=== PATIENT | male | born 1995 | race Caucasian/White ===

== ENCOUNTER 2020-01-06 20:08 | Emergency (ER) | payer SELFPAY ==
[2020-01-06 20:10] VITALS: BP 106/86; PULSE 108; RESP 16; TEMP 37.2; O2SAT 98; BMI 29.0
[2020-01-06 20:30] VITALS: BP 112/84; PULSE 110; RESP 17; O2SAT 98
--- NOTE | 2020-01-06 20:41 | CT_ITS ---
PROCEDURE: CT HEAD/BRAIN WO CON CLINICAL INDICATION: Head injury Head injury with headache/pain, contusion, abrasion or hematoma COMPARISON: No exams were available for comparison TECHNIQUE: Axial images obtained. All CT scans at the facility use one or more dose reduction, viz: automated exposure control, ma/kV adjustment per patient size (including targeted exams where dose is matched to indication, i.e. head), or iterative reconstruction technique. FINDINGS: No midline shift, mass effect, intracranial hemorrhage, hydrocephalus, or extra-axial fluid collection is evident. The calvarium has an unremarkable appearance. No mastoid effusion. No sinus air-fluid level. IMPRESSION: No acute intracranial finding Dictated by: Juan R Schmid MD 01/07/2020 06:09 Juan R Schmid MD in [place] 01/07/2020 06:09
--- NOTE | 2020-01-06 20:41 | CT_ITS ---
PROCEDURE: CT CERVICAL SPINE WO CON CLINICAL INDICATION: Head injury Neck injury with pain, contusion/abrasion or hematoma, cervical sprain/strain the COMPARISON: No exams were available for comparison TECHNIQUE: Axial images obtained with sagittal and coronal reformats. All CT scans at the facility use one or more dose reduction, viz: automated exposure control, ma/kV adjustment per patient size (including targeted exams where dose is matched to indication, i.e. head), or iterative reconstruction technique. Axial spiral CT scanning performed of the cervical spine beginning at the base of the skull and continuing to the upper T-spine. 3-D multiplanar reconstruction with 3-D manipulation of volumetric data set in image rendering was completed by the radiologist and/or technologist with the supervision of the radiologist on independent workstation. FINDINGS: No fracture nor subluxation is evident. Normal prevertebral soft tissues. Facets, neural foramen and vertebral bodies intact and unremarkable. Normal C1/C2 relationships. Apices of lungs are clear with no acute findings. Scattered small nodes are present in the neck. These measure to 2 x 1 cm level 3 on the left. IMPRESSION: No acute fracture. Mild cervical adenopathy. Dictated by: Juan R Schmid MD 01/07/2020 06:14 Juan R Schmid MD in [facility] 01/07/2020 06:14
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
[2020-01-06 21:29] VITALS: BP 116/72; PULSE 96; RESP 16; TEMP 37.2; O2SAT 99
== END 2020-01-06 21:32 | disposition home or self-care (01) ==
PROVIDERS: Emergency Provider Emergency Medicine; PCP Nurse Practitioner Family
DX: S00.93XA Contusion of unspecified part of head, initial encounter (principal); W22.03XA Walked into furniture, initial encounter; Y92.019 Unspecified place in single-family (private) house as the place of occurrence of the external cause; F17.290 Nicotine dependence, other tobacco product, uncomplicated
CPT/HCPCS: 70450; 72125; 99283

== ENCOUNTER 2020-09-20 19:07 | Emergency (ER) | payer SELFPAY ==
[2020-09-20 19:25] VITALS: BP 133/83; PULSE 97; RESP 18; TEMP 36.8; O2SAT 97; BMI 30.5
[2020-09-20 19:53] VITALS: PULSE 97; RESP 18; TEMP 36.8; O2SAT 97; BMI 36.6
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
[2020-09-20 21:03] VITALS: BP 0/0; PULSE 0; RESP 0; TEMP -17.7; TEMP 0
== END 2020-09-20 21:03 | disposition home or self-care (01) ==
PROVIDERS: Emergency Provider Nurse Practitioner
DX: T25.211A Burn of second degree of right ankle, initial encounter (principal); T31.0 Burns involving less than 10% of body surface; X03.0XXA Exposure to flames in controlled fire, not in building or structure, initial encounter; Y92.89 Other specified places as the place of occurrence of the external cause; Z23 Encounter for immunization; F17.290 Nicotine dependence, other tobacco product, uncomplicated
CPT/HCPCS: 16020; 90715; 99202; G0463

== ENCOUNTER 2021-04-17 12:22 | Emergency (ER) | payer OTHER, SELFPAY ==
[2021-04-17 12:23] VITALS: BP 148/84; PULSE 83; RESP 16; TEMP 36.8; O2SAT 99; BMI 32.1
--- NOTE | 2021-04-17 14:04 | HMH.EDUTC ---
[facility] [place] Clinical Impression: Viral syndrome Back pain Qualifiers: Back pain location: low back pain Chronicity: acute Back pain laterality: midline Sciatica presence: without sciatica Qualified Code(s): M54.50 - Low back pain, unspecified Disposition: Home, Self-Care Condition on Discharge: Good Instructions: DI for Low Back Pain, DI for Viral Syndrome Additional Instructions: Go home and rest. It would be best if you rested tomorrow too. No heavy lifting. No twisting. Drink plenty of fluids. Take tylenol or ibuprofen for pain or fever. Take the medications as directed. Follow up with your regular doctor. GO TO THE ER FOR ANY WORSENING SYMPTOMS Prescriptions: Brompheniramine/Pseudoephed/Dm [Bromfed Dm Cough Syrup] 5 ml PO Q6HP PRN #240 ml PRN Reason: Cough Transmission Status: Received by [facility] Ibuprofen [Ibuprofen 800mg Tablet] 800 mg PO Q8HP PRN #30 tab PRN Reason: Moderate Pain Transmission Status: Received by [facility] methylPREDNISolone [Medrol] 4 mg PO DIRECTED 6 Days #21 packet Transmission Status: Received by [id number] Referrals: Provider,Referral, [Primary Care Provider] - Forms: Work/School Release Time of Disposition: 14:32 Medical Decision Making - Medical Records Medical records reviewed: No: I reviewed the patient's medical records. - Franklin Inquiry Pt receiving controlled substance: No Vital Signs: 04/17/21 12:23 04/17/21 14:35 Temperature 98.3 F 98.3 F Temperature Source Oral Oral Pulse Rate 80 Pulse Rate [Right] 83 Respiratory Rate 16 16 Blood Pressure 148/80 H Blood Pressure [Right Arm] 148/84 H Blood Pressure Mean [Right Arm] 105 Blood Pressure Source Automatic Cuff Blood Pressure Source [Right Arm] Automatic Cuff Blood Pressure Position Sitting Blood Pressure Position [Right Arm] Sitting 02 Sat by Pulse Oximetry 99 Oxygen Delivery Method Room Air Room Air - Lab Data Lab Results 04/17/21 14:13: Strep Scn Rapid Clinic Negative [facility] [place] - General Stated complaint: back pain Time Seen by Provider: 04/17/21 14:04 - History of Present Illness Provider Complaint: He states that he has felt bad since yesterday. He has had back pain, body aches and he has felt bad. He denies any chest congestion or significant cough. - Related Data Previous Rx's Medication Instructions Recorded Amoxicillin/Potassium Clav 1 tab PO Q12H 10 Days #20 tab 09/20/20 [Augmentin 875-125 Tablet] Brompheniramine/Pseudoephed/Dm 5 ml PO Q6HP PRN #240 ml 04/17/21 [Bromfed Dm Cough Syrup] Ibuprofen [Ibuprofen 800mg 800 mg PO Q8HP PRN #30 tab 04/17/21 Tablet] methylPREDNISolone [Medrol] 4 mg PO DIRECTED 6 Days #21 04/17/21 packet Allergies Allergy/AdvReac Type Severity Reaction Status Date / Time No Known Allergies Allergy Verified 01/06/20 20:41 [facility] History - Hepatitis A Screen Attestation statement:: This patient has been screened for Hepatitis A risk factors. I have reviewed the patient's past medical history: Yes 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: Denies:: Cancer, Diabetes Mellitus Type 1, Diabetes Mellitus Type 2, MRSA Amputation: No Fractures: No - Social History Smoking Status: Current every day smoker Tobacco Type: e-cigarettes # Packs/Day (cigarettes): 1 Alcohol Intake: current Alcohol Intake Frequency:: holidays/special occasions only Occupational Status: employed Housing: house ROS Obtained: Yes All systems reviewed & no additional complaints - Constitutional Constitutional: Denies chills, Denies fever(s) - Genitourinary Male Genitourinary: Denies difficulty urinating, Denies hematuria, Denies urinary frequency, Denies urinary hesitancy - Musculoskeletal Musculoskeletal: Reports as per HPI - Integumentary/Breasts Skin/Breast: Denies rash - Neurologic Neurologic: Denies tingling/numbness/burning sensations Physical Exam - General General a
[2021-04-17 14:16] LABS: UTC Strep Screen (Rapid) Negative (Negative)
[2021-04-17 14:35] VITALS: BP 148/80; PULSE 80; RESP 16; TEMP 36.8; O2SAT 98
== END 2021-04-17 14:38 | disposition home or self-care (01) ==
PROVIDERS: Emergency Provider Nurse Practitioner Family
DX: B34.9 Viral infection, unspecified (principal); M54.50 Low back pain, unspecified
CPT/HCPCS: 87880; 99212; G0463

== ENCOUNTER 2021-10-30 08:15 | Emergency (ER) | payer OTHER, SELFPAY ==
[2021-10-30] VITALS (10 sets, daily range): BP systolic 106–133; BP diastolic 50–85; PULSE 61–92; RESP 15–18; TEMP 36.8–36.9; O2SAT 98–99; BMI 33.1
--- NOTE | 2021-10-30 08:15 | ECG_ITS ---
APPROVED REPORT Exam: Resting ECG HR:84 bpm ECG Measurements Heart Rate 84 AXES MO 161 P 11 QRSd 116 QRS 54 QT 374 T 16 QTc 414 Conclusion SINUS RHYTHM MODERATE INTRAVENTRICULAR CONDUCTION DELAY [110+ ms QRS DURATION] BORDERLINE ECG UNCONFIRMED REPORT Electronically signed by : Fam Martinez MD 10/30/2021 21:08:28
--- NOTE | 2021-10-30 08:22 | PC.NURSE ---
Medic @ BS attepmting IV Access
--- NOTE | 2021-10-30 08:28 | XR_ITS ---
FINAL REPORT TECHNIQUE: Chest PA & Lateral CLINICAL HISTORY: CP FINDINGS: 2 views of the chest were performed. The heart size is normal. The mediastinum is within normal limits. There is no acute cardiopulmonary process. There are no pleural effusions. There is no pneumothorax. The bony thorax appears intact. IMPRESSION: No acute cardiopulmonary process. Reviewed, Interpreted and Dictated by Ignacio Davis MD Transcribed by Chris Pinto Authenticated and [facility]
[2021-10-30 08:37] LABS: Basophils # 0.1 K/mm3 (0-0.2); Basophils % 1.5 % (0.1-2.0); Eosinophils # 0.3 K/mm3 (0.0-0.4); Eosinophils % 3.4 % (0.1-12.0); Hematocrit 46.2 % (42.0-52.0); Hemoglobin 15.2 g/dL (14.1-18.0); Lymphocytes # 3.3 K/mm3 (0.7-4.5); Lymphocytes % 37.4 % (10-50); Mean Corpuscular HGB Conc 32.9 g/dL (31.8-35.4); Mean Corpuscular Hemoglobin 31.5 pg (27.0-31.2); Mean Corpuscular Volume 95.7 fl (80-94); Mean Platelet Volume 7.6 fl (7.4-10.4); Monocytes # 0.7 K/mm3 (0.1-1.0); Monocytes % 8.5 % (1.7-9.3); Neutrophils # 4.3 K/mm3 (1.8-7.8); Neutrophils % 49.2 % (37.0-80.0); Platelet Count 405 K/mm3 (142-424); Red Blood Count 4.83 M/mm3 (4.60-6.20); Red Cell Distribution Width 12.8 % (11.5-17.5); White Blood Count 8.8 K/mm3 (4.8-10.8)
[2021-10-30 08:40] LABS: Chloride 105 mmol/L (98-107)
[2021-10-30 08:41] LABS: Potassium 3.9 mmoL/L (3.5-5.1); Sodium 142 mmol/L (136-145)
[2021-10-30 08:44] LABS: Anion Gap 13.9 mEq/L (5-15); Blood Urea Nitrogen 14 mg/dl (9-20); Calcium 8.8 mg/dl (8.4-10.2); Carbon Dioxide 27 mmol/L (22.0-30.0); Creatinine Clearance Estimated 242 mL/min (50-200); Estimated Glomerular Filt Rate 119 ml/min (>60); GFR (African American) 144 ML/MIN (>60); Glucose 99 mg/dl (74-100)
[2021-10-30 08:56] LABS: Troponin I < 0.01 ng/ml (0.00-0.034)
--- NOTE | 2021-10-30 09:02 | PC.NURSE ---
PT to rad
--- NOTE | 2021-10-30 09:05 | PC.NURSE ---
Pt back from RAD
--- NOTE | 2021-10-30 09:23 | HMH.EDGENADL ---
Discharge Plan Disposition Patient Disposition: Home, Self-Care Condition: Good Chief Complaint: Chest Pain Prescriptions Prescriptions: No Action amoxicillin-pot clavulanate 1 EACH tablet 1 tab PO Q12H 10 Days Qty: 20 0RF ibuprofen 800 MG tablet 800 mg PO Q8HP PRN (Reason: Moderate Pain) Qty: 30 0RF methylprednisolone 4 MG tablets,dose pack 4 mg PO DIRECTED 6 Days Qty: 21 0RF gxfheerxyzdwmkk-rcjsxajyw-BD 118 ML syrup 5 ml PO Q6HP PRN (Reason: Cough) Qty: 240 0RF Referrals Follow up/Referrals: Provider,Referral, MD [Primary Care Provider] - See instructions Activity Restrictions/Add. Instructions Additional Instructions/Restrictions: Additional instructions for CHEST PAIN: See your physician as soon as possible for further evaluation. Return immediately if worsening chest pain, vomiting, shortness of breath, fever, coughing of blood. You are being provided with a list of physicians available for follow-up of your condition. Please call a physician on this list to arrange a follow-up appointment as soon as possible. Clinical Impressions Clinical Impression: Atypical chest pain Discharge ED Provider: Quintin Davis General Adult HPI General Chief complaint: Chest Pain Stated complaint: Chest Pain Time Seen by Provider: 10/30/21 09:20 Mode of Arrival: Ambulatory Source of Information: Patient Limitations: No Limitations Description of Symptoms (Recalled from ER Triage Doc. by RN): Pt c/o midsternal CP that began at approx 0600 when he woke up this AM. Denies cough, SOA, N/V. States that sometimes breathing increases the pain. History of Present Illness HPI narrative: States he woke up at 6 AM with pain in his right anterior chest that feels like needles. Pain worsens with deep breath. Denies being short of breath. No leg pain or swelling. He has had some coughing since awakening this morning but no hemoptysis or sputum production. No fever. The pain is still present. No treatment prior to arrival. States that he had to be on a heart monitor 4 weeks after he was born, otherwise no heart problems since then. No known lung conditions. He is a former smoker. No recent surgery, hospitalizations, or travel. No recent COVID infection. Related Data Previous Rx's Medication Instructions Recorded amoxicillin 875 mg-potassium 1 tab PO Q12H 10 days #20 tabs 09/20/20 clavulanate 125 mg tablet btgiymwzdoswpxo-ampvwqiroyazraz-IN 5 ml PO Q6HP PRN Cough #240 mL 04/17/21 2 mg-30 mg-10 mg/5 mL oral syrup ibuprofen 800 mg tablet 800 mg PO Q8HP PRN Moderate Pain 04/17/21 #30 tabs methylprednisolone 4 mg tablets in 4 mg PO DIRECTED 6 days #21 04/17/21 a dose pack packets Allergies Allergy/AdvReac Type Severity Reaction Status Date / Time No Known Allergies Allergy Verified 01/06/20 20:41 PFSH PFS Social History Smoking Status: Former smoker alcohol intake: current current occupational status: employed Travel in the last 8 weeks: None housing: house ROS Obtained: Yes Systems reviewed as appropriate & no additional complaints except as documented Constitutional Constitutional: Denies fever(s) and Denies weakness Cardiovascular Cardiovascular: Denies chest pain, Denies diaphoresis and Denies radiating jaw, neck or arm pain Respiratory Respiratory: Denies shortness of breath, Reports cough, Denies hemoptysis, Denies cough with sputum production and Reports pain with breathing Gastrointestinal Gastrointestingal: Denies abdominal pain, constipation, diarrhea or vomiting Genitourinary Male Genitourinary: Denies difficulty urinating and Denies flank pain Musculoskeletal Musculoskeletal: Denies numbness Neurologic Neurologic: Denies numbness and Denies weakness Physical Exam General General appearance: alert and in no apparent distress Head Head exam: atraumatic and normocephalic Eye Eye exam: Present normal appearance and EOMI ENT ENT exam: Present mucous
[2021-10-30 11:20] LABS: D-Dimer 0.41 ug/mL (0.0-0.5)
[2021-10-30 11:44] LABS: Troponin I < 0.01 ng/ml (0.00-0.034)
== END 2021-10-30 12:17 | disposition home or self-care (01) ==
PROVIDERS: Emergency Provider Emergency Medicine
DX: R07.89 Other chest pain
CPT/HCPCS: 71046; 80048; 84484; 85025; 85378; 93005; 99284

== ENCOUNTER → 2022-06-04 13:51 | Outpatient (CLI) | payer OTHER, SELFPAY ==
--- NOTE | 2022-06-04 13:58 | XR_ITS ---
FINAL REPORT CLINICAL HISTORY: low back pain FINDINGS: AP and lateral views were obtained. There is no acute fracture. There is no malalignment. The disc spaces are maintained. IMPRESSION: No acute process. Reviewed, Interpreted and Dictated by Memo Wheeler III, MD Transcribed by Chris Pinto Authenticated and . [facility]
== END ==
PROVIDERS: PCP Family Medicine; Visit Provider Family Medicine
DX: M54.50 Low back pain, unspecified (principal)
CPT/HCPCS: 72100

== ENCOUNTER 2022-06-09 17:48 | Emergency (ER) | payer OTHER, SELFPAY ==
[2022-06-09 17:49] VITALS: BP 146/92; PULSE 85; RESP 18; TEMP 36.8; O2SAT 99; BMI 34.0
--- NOTE | 2022-06-09 17:52 | XR_ITS ---
PROCEDURE INFORMATION: Exam: XR Right Foot Exam date and time: 06/09/2022 5:53 PM Age: 26 years old Clinical indication: Pain; Foot; Right; Additional info: Stubbed great toe TECHNIQUE: Imaging protocol: Radiologic exam of the right foot. Views: 3 or more views. COMPARISON: No relevant prior studies available. FINDINGS: Bones/joints: There is mild hallux valgus. Osseous alignment is otherwise normal. Linear lucency at the distal end of the 1st proximal phalanx is compatible with nondisplaced intra-articular fracture. No other evidence of fracture. No arthritic change. Soft tissues: Normal. IMPRESSION: Nondisplaced intra-articular fracture of the distal end of the 1st proximal phalanx
--- NOTE | 2022-06-09 18:15 | EXP.UTC ---
Discharge Plan Disposition Patient Disposition: Home, Self-Care Condition: Good Prescriptions Prescriptions: No Action tizanidine 4 mg tablet 4 mg PO Q8H PRN (Reason: muscle spasticity) Qty: 60 0RF naproxen [Naprosyn] 500 mg tablet 500 mg PO BID Referrals Follow up/Referrals: Chas Mi DO [Staff Physician] - See instructions (Call office for appointment) Samantha Cunningham DO [Primary Care Provider] - See instructions Activity Restrictions/Add. Instructions Additional Instructions/Restrictions: *weight bearing as tolerated *RICE, Rest the extremity, Ice 15-20 minutes 3-4 times daily, Compress- wear the henrietta wrap as discussed as much as possible to help reduce swelling and pain, Elevate the extremity when at rest *Post op Shoe is for support and help control swelling, use it except in the shower. Be sure that is not to tight but not to loose either *Elevate when resting? *Ibuprofen 600-800mg every 6-8 hours as needed for pain an inflammation. If need something more can take Tylenol in between doses of Ibuprofen to help Follow up with Orthopedics for further evaluation and treatment Clinical Impressions Clinical Impression: Fracture of toe Instructions Patient Instructions: Toe Fracture, DI for Toe Fracture, How To Perform RICE (Rest, Ice, Compress, Elevate) Discharge ED Provider: Rosamaria Escobar [facility] General Stated complaint: AO 06/08 Right foot big toe pain Time Seen by Provider: 06/09/22 18:15 History of Present Illness Provider Complaint: Patient states that he stubbed his right great toe yesterday on the door frame and has been having pain and swelling ever since States that it hurts when he walks and bends his toe States that today bruising was worse today so he came in to get it checked Related Data Home Medications Medication Instructions Recorded Confirmed naproxen 500 mg tablet (Naprosyn) 500 mg PO BID . 06/09/22 06/09/22 Previous Rx's Medication Instructions Recorded tizanidine 4 mg tablet 4 mg PO Q8H PRN muscle spasticity 06/05/22 #60 tabs Allergies Allergy/AdvReac Type Severity Reaction Status Date / Time No Known Allergies Allergy Verified 06/09/22 18:18 [facility] Disclaimer: The information contained in this section may have been updated after the patient was seen, as this information can be updated by other users. 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 (Updated 06/09/22 @ 18:37 by Rosamaria Escobar APRN) ADD (attention deficit disorder) ADHD Surgical History Hx of tonsillectomy Family History Mother Diabetes Hypertension Asthma Sister Thyroid disorder Hypertension Diabetes Social History Smoking Status: Former smoker years smoked: 5 smoking status stop date: 09/24/2021 alcohol intake: current substance use type: denies use current occupational status: employed Travel in the last 8 weeks: None housing: house ROS Obtained: Yes All systems reviewed & no additional complaints except as documented and Yes Systems reviewed as appropriate & no additional complaints except as documented Constitutional Constitutional: Reports system reviewed and no additional complaints, except as documented and Reports as per HPI ENT Ears, Nose, Mouth, and Throat: Reports system reviewed and no additional complaints, except as documented and Reports as per HPI Cardiovascular Cardiovascular: Reports system reviewed and no additional complaints, except as documented and Reports as per HPI Respiratory Respiratory: Reports system reviewed and no additional complaints, except as documented and Reports as per HPI Musculoskeletal Musculoskeletal: Reports system reviewed and no additional complaints, except as documented and Reports as per HPI Comments: bruising and swelling to right great toe since yesterday Physical
[2022-06-09 18:44] VITALS: BP 146/92; PULSE 85; RESP 18; TEMP 36.8; O2SAT 99
== END 2022-06-09 18:44 | disposition home or self-care (01) ==
PROVIDERS: Emergency Provider Nurse Practitioner; PCP Family Medicine
DX: S92.414A Nondisplaced fracture of proximal phalanx of right great toe, initial encounter for closed fracture (principal); W22.8XXA Striking against or struck by other objects, initial encounter; Z87.891 Personal history of nicotine dependence
CPT/HCPCS: 73630; 99212; 99214; G0463

== ENCOUNTER → 2022-06-17 13:46 | Outpatient (CLI) | payer OTHER, SELFPAY ==
--- NOTE | 2022-06-17 13:47 | MR_ITS ---
FINAL REPORT TECHNIQUE: Multiplanar MR without gadolinium enhancement CLINICAL HISTORY: low back pain. SYMPTOMS XYEARS FINDINGS: Sagittal images show normal vertebral height. Alignment is normal. Marrow signal pattern is unremarkable. A hemangioma is noted in the L2 vertebral body. L1-2: Unremarkable L2-3: Unremarkable L3-4: Unremarkable L4-5:Unremarkable L5-S1: Mild annular disc bulge with moderate facet arthropathy, left greater than right. IMPRESSION: Moderate facet arthropathy in the lower lumbar spine without canal stenosis or nerve root compression. Reviewed, Interpreted and Dictated by Javier Lynch MD Transcribed by Heather Jay Authenticated and [facility]
== END ==
PROVIDERS: PCP Family Medicine; Visit Provider Family Medicine
DX: M54.50 Low back pain, unspecified (principal)
CPT/HCPCS: 72148; 76376

== ENCOUNTER 2022-08-31 12:28 | Emergency (ER) | payer OTHER, SELFPAY ==
[2022-08-31 12:35] VITALS: BP 127/81; PULSE 85; RESP 22; TEMP 36.7; O2SAT 98; BMI 38.5
[2022-08-31 12:41] VITALS: BP 127/81; PULSE 85; RESP 22; TEMP 36.7; O2SAT 98
--- NOTE | 2022-08-31 12:41 | EXP.UTC ---
Discharge Plan Disposition Patient Disposition: Home, Self-Care Condition: Good Prescriptions Prescriptions: No Action diclofenac sodium 75 mg tablet,delayed release (DR/EC) 75 mg PO BID Qty: 60 1RF Referrals Follow up/Referrals: Provider,Referral, [Primary Care Provider] - See instructions Activity Restrictions/Add. Instructions Additional Instructions/Restrictions: follow up with pcp serjio tylenol or motrin as needed rotate heat and ice as neeed Clinical Impressions Clinical Impression: Back pain Qualifiers: Back pain location: low back pain Chronicity: chronic Back pain laterality: midline Sciatica presence: without sciatica Qualified Code(s): M54.50 - Low back pain, unspecified; G89.29 - Other chronic pain Stand Alone Forms Stand Alone Forms: Work/School Release Instructions Patient Instructions: DI for Chronic Pain -- Adult Discharge ED Provider: Pranay ([facility])Amanda [facility] [place] HPI General Stated complaint: Back pain no known accident Mode of Arrival: Ambulatory Source of Information: Patient Limitations: No Limitations Time Seen by Provider: 08/31/22 12:41 Description of Symptoms (Recalled from Triage Doc. by RN): PATIENT C/O CHRONIC LOWER BACK PAIN AND IS REQUESTING A DOCTOR'S NOTE. NO KNOWN RECENT INJURY HEENT Symptoms (Recalled from RN notes): No Resp Symptoms (Recalled from RN notes): No Skin Symptoms (Recalled from RN notes): No MS Symptoms (Recalled from RN notes): Yes Functional Status (Recalled from RN notes): WNL History of Present Illness Provider Complaint: 26 yr old male presents for low back pain. pt states this pain is chronic and he has had it worked up. states he must have slept funny cause it hurt this am. pt states he just needs to rest his back and needs a work note. Related Data Previous Rx's Medication Instructions Recorded diclofenac sodium 75 mg 75 mg PO BID #60 tabs 06/21/22 tablet,delayed release Allergies Allergy/AdvReac Type Severity Reaction Status Date / Time No Known Allergies Allergy Verified 06/21/22 10:48 Worker's Comp Is this a Worker's Comp case?: No [facility] Disclaimer: The information contained in this section may have been updated after the patient was seen, as this information can be updated by other users. 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) Smoking Status: Former smoker years smoked: 5 smoking status stop date: 09/24/2021 alcohol intake: current substance use type: denies use current occupational status: employed Travel in the last 8 weeks: None housing: house ROS Obtained: Yes All systems reviewed & no additional complaints except as documented Constitutional Constitutional: Reports system reviewed and no additional complaints, except as documented Eyes Eyes: Reports system reviewed and no additional complaints, except as documented ENT Ears, Nose, Mouth, and Throat: Reports system reviewed and no additional complaints, except as documented Cardiovascular Cardiovascular: Reports system reviewed and no additional complaints, except as documented Respiratory Respiratory: Reports system reviewed and no additional complaints, except as documented Musculoskeletal Musculoskeletal: Reports system reviewed and no additional complaints, except as documented, Reports as per HPI, Reports back pain and Reports myalgias Integumentary/Breasts Skin/Breast: Reports system reviewed and no additional complaints, except as documented Neurologic Neurologic: Reports system reviewed and no additional complaints
== END 2022-08-31 12:50 | disposition home or self-care (01) ==
PROVIDERS: Emergency Provider Nurse Practitioner Family
DX: M54.50 Low back pain, unspecified (principal); G89.29 Other chronic pain; F90.2 Attention-deficit hyperactivity disorder, combined type; Z87.891 Personal history of nicotine dependence
CPT/HCPCS: 99211; 99213; G0463

== ENCOUNTER → 2023-02-19 13:48 | Outpatient (POV) | payer OTHER, SELFPAY ==
--- NOTE | 2023-02-19 14:19 | A.OFFVIS_ITS ---
HPI Data of Consult Patient: new to practice Consult date: 02/19/23 Requesting Physician: Joanne Mi APRN Consult Narrative Reason for consult: Low back pain History of present illness: Mr. Morse is a 27 year old male who presents today as a new patient. He is a referral from Henry Brock's office. Today he rates his pain an 8 out of 10. Patient states his pain is all in his low back. He states that the pain primarily stays within his low back however with prolonged driving he will notice some pain into his upper right thigh however he states this is not very frequently. Patient states this has been going on for several years related to a work injury that occurred at [employer] [facility] [employer]. Patient does describe this as a sharp achy sensation that is worse with certain movements such as bending, twisting or lifting. He states the pain is constant and interferes with his ability perform activities of daily living such as cooking and cleaning or even simple ambulation.. Patient has tried [id number]-trheldm medications such as Tylenol and ibuprofen along with heat and ice and topicals with minimal relief. Patient denies any previous physical therapy, surgical history or injection history. Patient has tried different pain medications in the past and states that he only really noticed improvement when he was given Percocet 10 mg for his wisdom teeth removal. His Franklin has been reviewed and is appropriate. CC: Joanne Mi APRN [facility] Disclaimer: The information contained in this section may have been updated after the patient was seen, as this information can be updated by other users. 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 ADD (attention deficit disorder) ADHD Surgical History Hx of tonsillectomy Family History Mother Diabetes Hypertension Asthma Sister Thyroid disorder Hypertension Diabetes Social History Smoking Status: Former smoker tobacco type: e-cigarettes years smoked: 5 smoking status stop date: 09/24/2021 alcohol intake: current substance use type: denies use current occupational status: employed Travel in the last 8 weeks: None housing: house Review of Systems Review of Systems Review of systems:: pertinent systems reviewed and negative unless documented below Review of systems (narrative): Review of Systems: General: No recent weight changes, no fever, no sleep disturbances Respiratory: No cough, no shortness of air, no recurring pulmonary infections Cardiovascular/peripheral vascular: No chest pain, no palpitations, no edema, no shortness of breath Gastrointestinal: No new onset incontinence, normal bowel movements reported Genitourinary: No new onset incontinence Musculoskeletal: Low back pain Psychiatric: [Normal mood/affect] Neurological: [Denies weakness in extremities], [denies balance issues] Meds Home Medications and Allergies Home Medications Medication Instructions Recorded Confirmed Type No Known Home Medications 01/16/23 01/16/23 History New Prescriptions to Start Prescriptions: Allergies Allergy/AdvReac Type Severity Reaction Status Date / Time No Known Allergies Allergy Verified 01/16/23 14:07 Objective Narrative: Physical Exam: General: Alert and oriented x3, no acute distress, pleasant and cooperative Lungs: Respirations even and unlabored, symmetrical chest expansion Eyes: PERRL Musculoskeletal: Flexion and extension of lumbar [spine] somewhat guarded secondary to pain positive Kemps test Neurological: Speech clear, no gross sensory deficit Additional findings Additional findings: FINAL REPORT TECHNIQUE: Multiplanar MR without gadolinium enhancement CLINICAL HISTORY: low back pain. SYMPTOMS XYEARS FINDINGS: Sagittal images show normal vertebral height. Alignment is normal. Marrow signal pattern is unremarkable. A hemangioma is noted in the L2 vertebral body. L1-2: Unremarkable L2-3: Unremarkable L3-4: Unremarkable L4-5:Unremarkable L5-S1: Mild annular disc bulge with moderate facet arthropathy, left greater than right. IMPRESSION: Moderate facet arthropathy in the lower lumbar spine without canal stenosis or nerve root compression. Reviewed, Interpreted and Dictated by Javier Lynch MD Transcribed by Heather Jay Authenticated and [facility] Assessment and Plan *Assessment and plan (1) Low back pain: Status: Acute Qualifiers: Chronicity: chronic Back pain laterality: bilateral Sciatica presence: without sciatica Qualified Code(s): M54.50 - Low back pain, unspecified; G89.29 - Other chronic pain Category: Medical Code(s): M54.50 - Low back pain, unspecified (2) Lumbar facet arthropathy: Status: Acute Category: Medical Code(s): M47.816 - Spondylosis without myelopathy or radiculopathy, lumbar region Plan Patient is experiencing significant pain in his low back with limited range of motion and a positive Kemps test. I have discussed with the patient that he may benefit from lumbar facet medial branch blocks. Risk and benefits were discussed with the patient and he would like to proceed forward with this plan of care. I will also order the patient meloxicam 15 mg daily with a 2-week supply of this medication. Patient denies any heart or kidney issues. I have discussed with the patient that he is to discontinue all other NSAIDs while taking this medication and to take it with food to minimize GI upset. Patient will be scheduled for a lumbar medial branch block bilaterally L4-L5 and L5-S1. Patient has been instructed to contact the clinic with any concerns before the next appointment. Dr. Baum has reviewed this note and agrees with this plan of care. This note was dictated using voice recognition software and make contain errors or omissions.
[2023-02-19 14:30] VITALS: BP 138/99; PULSE 81; RESP 18; O2SAT 99; BMI 33.1
== END | disposition home or self-care (01) ==
PROVIDERS: Visit Provider Nurse Practitioner Family
DX: M47.816 Spondylosis without myelopathy or radiculopathy, lumbar region (principal); M54.50 Low back pain, unspecified; G89.29 Other chronic pain
CPT/HCPCS: 99202; G0463

== ENCOUNTER 2023-03-04 08:59 | Day surgery (SDC) | payer OTHER, SELFPAY ==
[2023-03-04 09:17] VITALS: BP 149/89; PULSE 79; RESP 16; TEMP 36.6; O2SAT 98; BMI 33.1
[2023-03-04 09:25] VITALS: BP 132/81; PULSE 77; RESP 16; O2SAT 98
[2023-03-04 09:26] VITALS: BP 134/83; PULSE 86; RESP 18; O2SAT 99
[2023-03-04] MEDS: LIDOCAINE 1% 5ML PF VIAL 5 ML (09:26)
[2023-03-04] MEDS: methylPREDNISolone ACETATE 80MG/ML VIAL 80 MG (09:26)
[2023-03-04] MEDS: BUPIVACAINE 0.25% 10ML INJ 25 MG IJ (09:26)
[2023-03-04 09:27] VITALS: BP 134/83; PULSE 92; RESP 18; O2SAT 100
--- NOTE | 2023-03-04 09:33 | P.PCN_ITS ---
Procedure Date: 03/04/23 Time: 09:22 Anesthesiologist:: Galindo Dyer CRNA Complications:: None Pre-procedure Diagnosis:: Degenerative disc lumbar spine multilevels. Lumbar radiculopathy. Lumbar spondylosis. Multilevel lumbar facet arthropathy. Post-procedure Diagnosis:: Same. Indications for Procedure:: Patient is a pleasant 27-year-old male who comes our clinic today for medial branch block lumbar bilateral L4-5, L5-S1. Patient describes low back pain is constant, dull, aching. Standing and or sitting for any length of time intensifies pain in the lumbar area. He also reports some bilateral hip and leg radicular symptoms at times. He rates his pain 8/10. Procedure Details:: Informed consent was obtained and the risk and benefits of the procedure was explained to the patient. Patient was taken to the procedure room where n oninvasive monitors were placed, including noninvasive blood pressure cuff as well as pulse oximeter. The area over the lumbar spine was cleansed using chlorhexidine as a cleansing solution. I anesthetized the skin and subcutaneous tissues with 1% Lidocaine. I placed 22-gauge spinal needles into the facet joint/ medial branches of L4-L5, and L5-S1] bilaterally. Needle placement was confirmed with fluoroscopy. After confirmation of needle placement, each site was injected with 1 mL of 1% lidocaine and 0.25 % Marcaine and 10 mg of Depo- Medrol. A total of 80 mg of depo medrol was used for bilateral medial branch blocks of L4-L5, and L5-S1] bilaterally. Patient tolerated the procedure without difficulty. There were no complications. Plan and Disposition:: Patient was discharged without incident.
== END 2023-03-04 09:25 | disposition home or self-care (01) ==
PROVIDERS: PCP Internal Medicine; Visit Provider Nurse Anesthetist, Certified Registered
DX: M47.896 Other spondylosis, lumbar region (principal); M51.16 Intervertebral disc disorders with radiculopathy, lumbar region
CPT/HCPCS: 64493; 64494; J1040

== ENCOUNTER 2023-08-01 11:00 | Emergency (ER) | payer OTHER, SELFPAY ==
--- NOTE | 2023-08-01 11:13 | XR_ITS ---
FINAL REPORT CLINICAL HISTORY: edema; kicked a table COMPARISON: None FINDINGS: RIGHT ANKLE: Three views show no evidence of acute displaced fracture or dislocation of the visualized bony architecture. The joint spaces appear normal. IMPRESSION: Unremarkable exam. Reviewed, Interpreted and Dictated by Javier Lynch MD Transcribed by Emily Amos Authenticated and [facility]
--- NOTE | 2023-08-01 11:13 | XR_ITS ---
FINAL REPORT CLINICAL HISTORY: edema; kicked a table COMPARISON: None FINDINGS: RIGHT FOOT: Three views show no evidence of acute displaced fracture or dislocation of the visualized bony architecture. The joint spaces appear normal. A hallux valgus deformity is present. IMPRESSION: Hallux valgus deformity, no acute bony abnormality. Reviewed, Interpreted and Dictated by Javier Lynch MD Transcribed by Emily Amos Authenticated and [facility]
[2023-08-01 11:20] VITALS: BP 125/72; PULSE 79; RESP 14; TEMP 36.6; O2SAT 99; BMI 34.1
--- NOTE | 2023-08-01 11:32 | ED_ITS ---
Discharge Plan Disposition Patient Disposition: Home, Self-Care Condition: Good Prescriptions Prescriptions: New naproxen 500 mg tablet 500 mg PO BID Qty: 20 0RF No Action meloxicam 15 mg tablet 15 mg PO DAILY Qty: 14 0RF Referrals Follow up/Referrals: Provider,Referral, [Primary Care Provider] - See instructions Activity Restrictions/Add. Instructions Additional Instructions/Restrictions: Will call with official Xray report Clinical Impressions Clinical Impression: Contusion of foot, right Instructions Patient Instructions: DI for Foot Sprain Discharge ED Provider: Sarah Beth Hobbs [facility] [place] HPI General Stated complaint: right foot pain ao 08/01/23 kicked table Mode of Arrival: Ambulatory Source of Information: Patient Limitations: No Limitations Time Seen by Provider: 08/01/23 12:20 Description of Symptoms (Recalled from Triage Doc. by RN): pt states he got angry yesterday and kicked a table with his R foot. pt c/o R foot pain that is 4/10 and it worsens with weight bearing. upon assesment the middle plantar part of the foot is pink, hot and edematous. HEENT Symptoms (Recalled from RN notes): No Resp Symptoms (Recalled from RN notes): No Skin Symptoms (Recalled from RN notes): No MS Symptoms (Recalled from RN notes): Yes Functional Status (Recalled from RN notes): wnl History of Present Illness Provider Complaint: Patient kicked a table with right foot last night. Pain and swelling to underside of foot. Worse with weight bearing. Onset (ago): day(s) (2) Location: right and lower extremity Radiation: non-radiation Relieving factors: immobilization Exacerbating factors: other (weight bearing) Associated symptoms: denies other symptoms Treatments prior to arrival: none Related Data Previous Rx's Medication Instructions Recorded meloxicam 15 mg tablet 15 mg PO DAILY #14 tabs 02/19/23 naproxen 500 mg tablet 500 mg PO BID #20 tabs 08/01/23 Allergies Allergy/AdvReac Type Severity Reaction Status Date / Time No Known Allergies Allergy Verified 01/16/23 14:07 Worker's Comp Is this a Worker's Comp case?: No [facility] Disclaimer: The information contained in this section may have been updated after the patient was seen, as this information can be updated by other users. 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 ADD (attention deficit disorder) ADHD Surgical History Hx of tonsillectomy Family History Mother Diabetes Hypertension Asthma Sister Thyroid disorder Hypertension Diabetes Social History Smoking Status: Former smoker tobacco type: e-cigarettes years smoked: 5 smoking status stop date: 09/24/2021 alcohol intake: current alcohol intake frequency: holidays/special occasions only substance use type: denies use current occupational status: employed Travel in the last 8 weeks: None housing: house ROS Obtained: Yes All systems reviewed & no additional complaints except as documented Musculoskeletal Musculoskeletal: Reports as per HPI and Reports abnormal gait Neurologic Neurologic: Reports abnormal gait Physical Exam General General appearance: alert and in no apparent distress Respiratory Respiratory exam: Present normal lung sounds bilaterally; Absent respiratory distress Cardiovascular Cardiovascular exam: Present regular rate and normal rhythm; Absent JVD Extremities Exam Extremities exam: Present full ROM and normal capillary refill; Absent calf tenderness Expanded Lower Extremity Exam Right: Foot/toe exam: Present tenderness and swelling Neurological Exam Neurological exam: Present alert and oriented X3 Psychiatric Psychiatric exam: Present normal affect and normal mood Skin Skin exam: Present warm, dry, intact and normal color Lymphatic Lymphatic Findings: no adenopathy Medical Decision Making Franklin Inquiry Pt receiving controlled substance: No Vital Signs: 08/01/23 11:20 Temperature 97.9 F Temperature Source Oral Pulse Rate [Left] 79 Respiratory Rate 14 Blood Pressure [Right Arm] 125/72 Blood Pressure Mean [Right Arm] 89 Blood Pressure Source [Right Arm] Automatic Cuff Blood Pressure Position [Right Arm] Sitting 02 Sat by Pulse Oximetry 99 Oxygen Delivery Method Room Air Orders (Tests/Meds): ORDERS Category Date Time Status Ankle XR -Right minimum 3 Views [XR ankle RT min 3V] Exams 08/01/23 11:13 Taken Stat XR foot RT min 3V Stat Exams 08/01/23 11:13 Taken Radiology Data #1: Image(s): Foot/Toes Image Reviewed: Yes I reviewed the patient's radiology results Preliminary Findings: Normal/NAD and No Fracture Seen #2: Image(s): Ankle Image Reviewed: Yes I reviewed the patient's radiology results Preliminary Findings: Normal/NAD and No Fracture Seen
[2023-08-01 12:33] VITALS: BP 0/0; PULSE 0; RESP 0; TEMP -17.7; TEMP 0
== END 2023-08-01 12:34 | disposition home or self-care (01) ==
PROVIDERS: Emergency Provider Physician Assistant
DX: S90.31XA Contusion of right foot, initial encounter (principal); W22.8XXA Striking against or struck by other objects, initial encounter
CPT/HCPCS: 73610; 73630; 99212; 99214; G0463

== ENCOUNTER 2023-08-18 11:07 | Emergency (ER) | payer SELFPAY ==
--- NOTE | 2023-08-18 11:28 | XR_ITS ---
FINAL REPORT CLINICAL HISTORY: pain and swelling FINDINGS: Three views of the right knee reveal no evidence of fracture or dislocation. The bony alignment is normal. The joint spaces are preserved. There is no evidence of joint effusion. No localized soft tissue abnormality is identified. IMPRESSION: No acute abnormality identified. Reviewed, Interpreted and Dictated by Memo Wheeler III, MD Transcribed by Heather Jay Authenticated and [facility]
[2023-08-18 11:30] VITALS: BP 136/75; PULSE 89; RESP 20; TEMP 36.6; O2SAT 99; BMI 33.6
--- NOTE | 2023-08-18 12:04 | EXP.UTC ---
Discharge Plan Disposition Patient Disposition: Home, Self-Care Condition: Good Referrals Follow up/Referrals: Provider,Referral, MD [Primary Care Provider] - See instructions Activity Restrictions/Add. Instructions Additional Instructions/Restrictions: *weight bearing as tolerated *RICE, Rest the extremity, Ice 15-20 minutes 3-4 times daily, Compress- wear the henrietta wrap as discussed as much as possible to help reduce swelling and pain, Elevate the extremity when at rest *Knee immobilizer is for support and help control swelling, use it except in the shower. Be sure that is not to tight but not to loose either *Elevate when resting? *Ibuprofen 600-800mg every 6-8 hours as needed for pain an inflammation. If need something more can take Tylenol in between doses of Ibuprofen to help Immediately follow up with your family doctor for new or worsening of symptoms, or no noticeable improvement over the next 3-5 days Clinical Impressions Clinical Impression: Knee pain Qualifiers: Chronicity: unspecified Laterality: right Qualified Code(s): M25.561 - Pain in right knee Instructions Patient Instructions: DI for Knee Pain, How to Use a Knee Immobilizer Discharge ED Provider: Rosamaria Escobar [facility] General Stated complaint: Pain and swelling in R knee, locks up Mode of Arrival: Ambulatory Source of Information: Patient Limitations: No Limitations Time Seen by Provider: 08/18/23 12:04 Description of Symptoms (Recalled from Triage Doc. by RN): PATIENT C/O SWELLING AND PAIN TO RIGHT KNEE X 2 WEEKS HEENT Symptoms (Recalled from RN notes): No Resp Symptoms (Recalled from RN notes): No Skin Symptoms (Recalled from RN notes): No MS Symptoms (Recalled from RN notes): Yes Functional Status (Recalled from RN notes): WNL History of Present Illness Provider Complaint: Patient states that he has been having pain and swelling on and off in his right knee for a couple weeks Denies known injury States today it was still bothering him so he came in to get it checked Related Data Allergies Allergy/AdvReac Type Severity Reaction Status Date / Time No Known Allergies Allergy Verified 01/16/23 14:07 Worker's Comp Is this a Worker's Comp case?: No [facility] Disclaimer: The information contained in this section may have been updated after the patient was seen, as this information can be updated by other users. 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 ADD (attention deficit disorder) ADHD Surgical History Hx of tonsillectomy Family History Mother Diabetes Hypertension Asthma Sister Thyroid disorder Hypertension Diabetes Social History Smoking Status: Former smoker tobacco type: e-cigarettes years smoked: 5 smoking status stop date: 09/24/2021 alcohol intake: current alcohol intake frequency: holidays/special occasions only substance use type: denies use current occupational status: employed Travel in the last 8 weeks: None housing: house ROS Obtained: Yes All systems reviewed & no additional complaints except as documented and Yes Systems reviewed as appropriate & no additional complaints except as documented Constitutional Constitutional: Reports system reviewed and no additional complaints, except as documented and Reports as per HPI ENT Ears, Nose, Mouth, and Throat: Reports system reviewed and no additional complaints, except as documented and Reports as per HPI Cardiovascular Cardiovascular: Reports system reviewed and no additional complaints, except as documented and Reports as per HPI Respiratory Respiratory: Reports system reviewed and no additional complaints, except as documented and Reports as per HPI Gastrointestinal Gastrointestingal: Reports system reviewed and no additional complaints, except as documented and as per HPI Musculoskeletal Musculoskeletal: Reports system reviewed and no additional complaints, except as documented, Reports as per HPI and Reports other Comments: Pain and swelling to right knee on and off for 2 weeks Physical Exam General General appearance: alert and in no apparent distress ENT ENT exam: Present mucous membranes moist Respiratory Respiratory exam: Present normal lung sounds bilaterally; Absent respiratory distress or wheezes Cardiovascular Cardiovascular exam: Present regular rate, normal rhythm and normal heart sounds Expanded Lower Extremity Exam Right: Leg image: 1. reports pain and swelling on and off x 2 weeks, no swelling, no redness no discoloration noted Knee exam: Present tenderness; Absent abrasion, laceration or erythema Lower leg exam: Present normal inspection Ankle exam: Present normal inspection Neurological Exam Neurological exam: Present alert, oriented X3 and normal gait Medical Decision Making Franklin Inquiry Pt receiving controlled substance: No Franklin was queried for this patient: No Vital Signs: 08/18/23 11:30 Temperature 97.9 F Temperature Source Oral Pulse Rate [Left Brachial] 89 Respiratory Rate 20 Blood Pressure [Left Arm] 136/75 Blood Pressure Mean [Left Arm] 95 Blood Pressure Source [Left Arm] Automatic Cuff Blood Pressure Position [Left Arm] Sitting 02 Sat by Pulse Oximetry 99 Oxygen Delivery Method Room Air Orders (Tests/Meds): ORDERS Category Date Time Status Knee XR right 3 views [XR knee RT 3V] Stat Exams 08/18/23 11:28 Taken Radiology Data #1: Image(s): Knee Image Reviewed: Yes I have reviewed radiologist's interpretation IMPRESSION: No acute abnormality identified.
[2023-08-18 13:08] VITALS: BP 136/75; PULSE 89; RESP 20; TEMP 36.6; O2SAT 99
== END 2023-08-18 13:12 | disposition home or self-care (01) ==
PROVIDERS: Emergency Provider Nurse Practitioner
DX: M25.561 Pain in right knee (principal)
CPT/HCPCS: 73562; 99212; 99213; G0463

== ENCOUNTER 2023-09-22 01:41 | Emergency (ER) | payer OTHER, SELFPAY ==
[2023-09-22 01:42] VITALS: BP 141/78; PULSE 110; RESP 18; TEMP 38.1; O2SAT 98; BMI 32.5
--- NOTE | 2023-09-22 02:29 | ED_ITS ---
Discharge Plan Disposition Patient Disposition: Home, Self-Care Prescriptions Prescriptions: New methocarbamol 500 mg tablet 1,000 mg PO Q6H PRN (Reason: pain) Qty: 60 0RF ondansetron HCl 4 mg tablet 4 mg PO Q8H PRN (Reason: nausea and vomiting) 5 Days Qty: 30 0RF lidocaine 5 % adhesive patch,medicated 1 patch topical DAILY PRN (Reason: pain) Qty: 30 0RF Rx Instructions: leave on most painful area for up to 12 hrs Referrals Follow up/Referrals: Provider,Referral, MD [Primary Care Provider] - See instructions Activity Restrictions/Add. Instructions Additional Instructions/Restrictions: Please follow-up with your PCP or with our orthopedist Dr. Mi for further assessment of your chronic right knee pain. You likely need an outpatient MRI as the next step to diagnose the issue. Please follow-up with your prior pain specialist team for further evaluation and treatment of your back pain. If you develop neurologic symptoms as discussed, or if you develop a red hot swollen joint, please return immediately to the emergency department for further assessment. I sent a prescription for methocarbamol, lidocaine patches and Zofran to the pharmacy. Please take these in addition to 600 mg of ibuprofen and 1 g of Tylenol as needed for pain at home. Clinical Impressions Clinical Impression: Chronic back pain, Chronic pain of right knee, Vomiting Print Language Print Language: [place] Verde[place] Discharge ED Provider: Jorge Cooper General Adult HPI General Chief complaint: PAIN Stated complaint: back and knee pain, vomiting blood Time Seen by Provider: 09/22/23 01:45 Mode of Arrival: Ambulatory Source of Information: Patient Limitations: No Limitations Description of Symptoms (Recalled from ER Triage Doc. by RN): Patient reports back and right knee is trying to lock up on him. Patient reports that this st arted yesterday about 9am and the pain has became unbearable . Patient also reports that he awoke at approximately 0050 to use the restroom and vomited light red emesis which he believes was blood. Patient denies drinking in the last 24 hours, denies nausea, diarrhea, other malaise. Patient reports that he has intermittent migraines that have been ongoing as well. History of Present Illness HPI narrative: 27-year-old male presents with numerous complaints. Regarding his back pain: He reports it has been ongoing for over the last year. He reports he has known disc herniation. He has seen a pain specialist and had an MRI in the past. He reports that he had lidocaine injections and had injections in the past which helped. He reports the pain never goes away completely, but sometimes gets worse. He feels like it has been a little worse over the last few days. He denies any lower extremity numbness weakness groin numbness, urinary or bowel incontinence, new trauma etc. Regarding his knee pain: He reports has been ongoing for weeks to months, nothing specifically is new tonight. Reports intermittent swelling. Denies any redness or heat of the knee. Denies any specific trauma that might of occurred. Reports he got x-rays that were negative in the last couple of weeks. He has not had a CT or MRI of the knee. He reports he is still able to walk and it is currently not swollen, red etc. Regarding the red vomit: He got up to use the bathroom around midnight and felt nauseous. He vomited once, small volume. Reports it looked red. Reports that he did eat pizza for dinner prior to vomiting. He denies any current chest pain abdominal pain nausea etc. Denies chronic ibuprofen use, denies any history of abdominal surgery, denies any significant nausea or vomiting recently. Regarding his headache: Reports I have kids, so I always have a headache. Tonight feels the same as normal. Regarding his fever: Reports that he has had increased nasal congestion and has not felt as well the last couple of days. Denies any urinary symptoms or history of STIs. Related Data Previous Rx's ?Medication ?Instructions ?Recorded lidocaine 5 % topical patch 1 patch topical DAILY PRN pain #30 09/22/23 ea methocarbamol 500 mg tablet 1,000 mg (2 x 500 mg) PO Q6H PRN 09/22/23 pain #60 tabs ondansetron HCl 4 mg tablet 4 mg PO Q8H PRN nausea and 09/22/23 vomiting 5 days #30 tabs Allergies Allergy/AdvReac Type Severity Reaction Status Date / Time No Known Allergies Allergy Verified 01/16/23 14:07 [facility] Disclaimer: The information contained in this section may have been updated after the patient was seen, as this information can be updated by other users. 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 ADD (attention deficit disorder) ADHD Surgical History Hx of tonsillectomy Family History Mother Diabetes Hypertension Asthma Sister Thyroid disorder Hypertension Diabetes Social History Smoking Status: Current every day smoker tobacco type: e-cigarettes years smoked: 5 smoking status stop date: 09/24/2021 alcohol intake: current alcohol intake frequency: holidays/special occasions only substance use type: denies use current occupational status: employed Travel in the last 8 weeks: None housing: house ROS Obtained: Yes All systems reviewed & no additional complaints except as documented Physical Exam General General appearance: alert and in no apparent distress Head Head exam: atraumatic and normocephalic Eye Eye exam: Present normal appearance, PERRL and EOMI ENT ENT exam: Present normal oropharynx and normal external ear exam Neck Neck exam: Present normal inspection and full ROM; Absent tenderness or meningismus Chest Chest inspection: Present normal inspection and symmetric chest wall rise; Absent tenderness Respiratory Respiratory exam: Present normal lung sounds bilaterally; Absent respiratory distress Cardiovascular Cardiovascular exam: Present regular rate and normal rhythm Abdominal Exam Abdominal exam: Present soft; Absent distention, tenderness or guarding Extremities Exam Extremities exam: Present other (No erythema or swelling of the right knee compared to left. No significant tenderness in the knee. No ligamentous laxity noted. Intact strength sensation and reflexes of the bilateral lower extremities.) Back Exam Back exam: Present normal inspection and tenderness (Mild, midline and paraspinal lumbar. Patient reports it is the same as it always is.) Neurological Exam Neurological exam: Present alert, oriented X3, normal gait and reflexes normal; Absent motor sensory deficit Psychiatric Psychiatric exam: Present normal affect and normal mood Skin Skin exam: Present warm, dry and normal color Lymphatic Lymphatic Findings: no adenopathy Medical Decision Making Medical Records Medical records reviewed: Yes I reviewed the patient's medical records. Franklin Inquiry Pt receiving controlled substance: No Franklin was queried for this patient: No Vital Signs: 09/22/23 01:42 Temperature 100.6 F H Temperature Source Oral Pulse Rate [Left Radial] 110 H Respiratory Rate 18 Blood Pressure [Right Arm] 141/78 H Blood Pressure Mean [Right Arm] 99 Blood Pressure Source [Right Arm] Automatic Cuff Blood Pressure Position [Right Arm] Sitting 02 Sat by Pulse Oximetry 98 Oxygen Delivery Method Room Air Lab Data Lab results reviewed: Yes I reviewed the patient's lab results. Orders (Tests/Meds): ED MEDICATIONS Discontinued Medications Generic Name Dose Route Start Last Admin Trade Name Milena PRN Reason Stop Dose Admin Acetaminophen 1,000 mg 09/22/23 02:23 Acetaminophen 500mg Tab PO 09/22/23 02:24 ONCE ONE Ketorolac Tromethamine 30 mg 09/22/23 02:23 Ketorolac 30mg/Ml Vial IV 09/22/23 02:24 ONCE ONE Ketorolac Tromethamine 30 mg 09/22/23 02:25 Ketorolac 30mg/Ml Vial IM 09/22/23 02:26 ONCE ONE Lidocaine 1 each 09/22/23 02:23 Lidocaine 5% Transdermal Patch TP 09/22/23 02:24 ONCE ONE Methocarbamol 1,000 mg 09/22/23 02:23 Methocarbamol 500mg Tablet PO 09/22/23 02:24 ONCE ONE Ondansetron HCl 4 mg 09/22/23 02:23 Ondansetron 4mg Odt SL 09/22/23 02:24 ONCE ONE Medical Decision Narrative: 27-year-old male with history of chronic low back pain, chronic right knee pain, chronic headaches presents with a new fever and an episode of vomiting something red after eating pizza for dinner. History was obtained via interactive discussion with patient, chart review. On arrival, patient is [afebrile, hemodynamically stable, satting appropriately, alert, oriented x4, GCS 15], moving all extremities spontaneously. Full physical exam performed and significant for findings as above. Specifically, no neurologic deficits noted on exam, meningismus, no abdominal tenderness, no asymmetric findings associated with the right knee. Patient ambulatory without difficulty. Differential includes but is not limited to URI, gastroenteritis, UTI, Mallika- Mcghee, Boerhaave's, stomach ulcer, chronic arthritis, soft tissue injury of the knee, septic joint, gout, spinal fracture, disc herniation, spinal infection.. I had extensive discussion with patient regarding his presentation. The main thing that concerns me is his fever. It is most likely explained by his con gestion and upper respiratory infection. The presence of fever in association with the chronic back pain and chronic knee pain could be concerning. However, patient's description of symptoms, the chronicity of symptoms, and physical exam findings are not consistent with an acute epidural abscess, septic joint, or other emergent infectious etiology. I considered MRI/joint tap to evaluate for these things but they were unnecessary at this time given discussion with patient. I also considered CT scan of the chest abdomen pelvis given possible hematemesis, but patient has no abdominal pain, no abdominal tenderness, no prior surgical history, no history consistent with esophageal tear or stomach ulcer at this time. The reported red vomit seems most consistent with vomiting up the remnants of his dinner pizza. I discussed with patient the next steps. I gave him specific return precautions for development of concerning neurologic findings associated with the back, or any signs or symptoms of a septic joint. I recommend he return emergently to the emergency department if he develops those. I recommended he return back to his pain specialist for reevaluation of his back given that it worked for him in the past. I recommended he follow-up with PCP or with Ortho for further evaluation of his chronic right knee pain as he likely needs an MRI for diagnosis. I recommended [id number] pain control medication as well as prescribed him a course of muscle relaxers, lidocaine patches and Zofran for symptomatic therapy. Patient was agreeable to plan and discharged in stable con dition. Procedures Risk/Benefits of Procedure(s) Were Explained: Yes Critical Care Critical Care Time Critical Care Time: No
[2023-09-22] MEDS: LIDOCAINE 5% TRANSDERMAL PATCH 1 EACH TP (02:30)
[2023-09-22] MEDS: METHOCARBAMOL 500MG TABLET 1000 MG PO (02:30)
[2023-09-22] MEDS: ACETAMINOPHEN 500MG TAB 1000 MG PO (02:30)
[2023-09-22] MEDS: KETOROLAC 30MG/ML VIAL 30 MG IM (02:30)
[2023-09-22] MEDS: ONDANSETRON 4MG ODT 4 MG SL (02:30)
[2023-09-22 02:38] VITALS: BP 141/78; PULSE 95; RESP 18; TEMP 37.8; O2SAT 98
== END 2023-09-22 02:39 | disposition home or self-care (01) ==
PROVIDERS: Emergency Provider Emergency Medicine
DX: M25.561 Pain in right knee (principal); M54.50 Low back pain, unspecified; G89.29 Other chronic pain; F17.290 Nicotine dependence, other tobacco product, uncomplicated; R11.2 Nausea with vomiting, unspecified; R50.9 Fever, unspecified
CPT/HCPCS: 96372; 96374; 99284; J1885; Q0162

== ENCOUNTER 2024-02-09 09:36 | Emergency (ER) | payer OTHER, SELFPAY ==
[2024-02-09 10:25] VITALS: BP 129/70; PULSE 69; RESP 17; TEMP 36.7; O2SAT 98; BMI 33.6
--- NOTE | 2024-02-09 10:34 | EXP.UTC ---
Discharge Plan Disposition Patient Disposition: Still a Patient Referrals Follow up/Referrals: Provider,Referral, [Primary Care Provider] - See instructions Activity Restrictions/Add. Instructions Additional Instructions/Restrictions: As discussed your symptoms are consistent with a concussion and postconcussive symptoms/syndrome. Nothing that you are experiencing is out of the ordinary from a concussion right now. Additionally you are 5 days out from the original injury and as discussed it is exceedingly unlikely that a CAT scan would demonstrate any type of pathology that would require emergent neurosurgical intervention therefore the risk of the CAT scan outweighs any benefit and with shared decision making we opted not to do a CT scan. Continue to take Tylenol as needed for your symptoms. Return to work and play as discussed in a stepwise fashion including 24 hours of complete rest followed by minimal activity followed by normal activity each time progressing only with no symptoms. This may take several more weeks I recommend that you follow-up with her primary care doctor if you need more than the next week off of work. Clinical Impressions Clinical Impression: Concussion, Post concussion syndrome Stand Alone Forms Stand Alone Forms: Work/School Release Print Language Print Language: B[place]udian Discharge ED Provider: Renetta Coronel [facility] General Chief complaint: PAIN Stated complaint: headache x5days Mode of Arrival: Ambulatory Source of Information: Patient and Significant Other Limitations: No Limitations Time Seen by Provider: 02/09/24 10:34 Description of Symptoms (Recalled from Triage Doc. by RN): PATIENT STATES THAT ON 02/03 HE TRIPPED AND HIT HIS HEAD ON A WOODEN PART OF A STOVE. PATIENT DENIES LOC, BUT STATES HE HAS HAD A HEADACHE SINCE. PATIENT DENIES VOMITING OR VISION CHANGES. PATIENT'S GIRLFRIEND STATES THAT HE HAS BEEN ACTING CONFUSED SINCE HITTING HIS HEAD. HEENT Symptoms (Recalled from RN notes): Yes Resp Symptoms (Recalled from RN notes): No Skin Symptoms (Recalled from RN notes): No MS Symptoms (Recalled from RN notes): No Functional Status (Recalled from RN notes): WNL History of Present Illness Provider Complaint: Patient states that on 02/03 he was getting biscuits out of the stove and there is a large wooden sosa on the stove and he hit his head on the corner hard and he fell to the ground states that he doesnt think he lost consciousness but since then has been having a bad headache with blurry vision on and off Family States that at times he has been acting confused and dazed at times Patient states that he has had headaches in the past but not like this one Denies N/V Related Data Allergies Allergy/AdvReac Type Severity Reaction Status Date / Time No Known Allergies Allergy Verified 01/16/23 14:07 Worker's Comp Is this a Worker's Comp case?: No [facility] Disclaimer: The information contained in this section may have been updated after the patient was seen, as this information can be updated by other users. 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 ADD (attention deficit disorder) ADHD Surgical History Hx of tonsillectomy Family History Mother Diabetes Hypertension Asthma Sister Thyroid disorder Hypertension Diabetes Social History Smoking Status: Current every day smoker tobacco type: e-cigarettes years smoked: 5 smoking status stop date: 09/24/2021 alcohol intake: current alcohol intake frequency: holidays/special occasions only substance use type: denies use current occupational status: employed Travel in the last 8 weeks: None housing: house Have you lived/traveled outside [place] in past 30 days?: No Contact w/someone who lives/traveled outside [place] past 30 days?: No Exposure to someone with infectious disease in past 14 days?: No Do you have a fever (greater than 100.4 F or 38 C)?: No Have you tested positive for COVID-19: No Exposed to someone with COVID-19 in past 14 days?: No Do you have a sore throat?: No Do you have a cough?: No Do you have any weakness?: No Do you have any diarrhea?: No Are you experiencing any unusual bleeding?: No Do you have any muscle aches/pain?: No Do you have any abdominal pain?: No Are you experiencing loss of taste or smell?: No ROS Obtained: Yes All systems reviewed & no additional complaints except as documented and Yes Systems reviewed as appropriate & no additional complaints except as documented Constitutional Constitutional: Reports system reviewed and no additional complaints, except as documented, Reports as per HPI and Reports headache(s) Eyes Eyes: Reports system reviewed and no additional complaints, except as documented, Reports as per HPI, Reports blurry vision (on and off since hitting his head), Denies floaters, Denies loss of vision, Denies sensitivity to light, Denies eye pain and Denies photophobia ENT Ears, Nose, Mouth, and Throat: Reports system reviewed and no additional complaints, except as documented, Reports as per HPI and Reports headache(s) Cardiovascular Cardiovascular: Reports system reviewed and no additional complaints, except as documented and Reports as per HPI Respiratory Respiratory: Reports system reviewed and no additional complaints, except as documented and Reports as per HPI Gastrointestinal Gastrointestingal: Reports system reviewed and no additional complaints, except as documented and as per HPI Genitourinary Male Genitourinary: Reports system reviewed and no additional complaints, except as documented and Reports as per HPI Musculoskeletal Musculoskeletal: Reports system reviewed and no additional complaints, except as documented and Reports as per HPI Neurologic Neurologic: Reports system reviewed and no additional complaints, except as documented, Reports as per HPI, Reports confusion (on and off since hitting his head on 02/03), Reports headache(s) and Denies loss of vision Physical Exam General General appearance: alert and in no apparent distress Head Head exam: atraumatic and normal inspection Expanded Head Exam Head image: 1. reports tenderness, no swelling, no bruising, no open wounds noted Eye Eye exam: Present normal appearance, PERRL and EOMI Respiratory Respiratory exam: Present normal lung sounds bilaterally; Absent respiratory distress or wheezes Cardiovascular Cardiovascular exam: Present regular rate, normal rhythm and normal heart sounds Neurological Exam Neurological exam: Present alert, oriented X3 and normal gait Medical Decision Making Medical Records Screening: Per USPSTF and CDC recommendations, given the prevalence of disease in our region, it is our hospital?s policy to screen for HIV and viral Hepatitis for all patients aged 18 and over and those with ongoing risk factors. Franklin Inquiry Pt receiving controlled substance: No Franklin was queried for this patient: No Vital Signs: 02/09/24 10:25 Temperature 98.0 F Temperature Source Oral Pulse Rate [Left Brachial] 69 Respiratory Rate 17 Blood Pressure [Left Arm] 129/70 Blood Pressure Mean [Left Arm] 89 Blood Pressure Source [Left Arm] Automatic Cuff Blood Pressure Position [Left Arm] Sitting 02 Sat by Pulse Oximetry 98 Oxygen Delivery Method Room Air Medical Decision Narrative: Due to patient complaining of confusion on and off and severe headache since hitting his head on wood stove sosa on 02/03 discussed with patient and will transfer to the ED for further work up and evaluation Patient agreed Patient moved to the ED
--- NOTE | 2024-02-09 10:43 | PC.NURSE ---
PATIENT SENT TO ER PER Quirino RESTREPO APRN FOR FURTHER EVALUATION. REPORT GIVEN TO DR. STEPHENS BY Quirino RESTREPO APRN. PATIENT AMBULATED TO ER WITH [facility] STAFF AT THIS TIME. FAMILY AT BEDSIDE
[2024-02-09 10:45] VITALS: BP 104/77; PULSE 69; RESP 13; TEMP 36.9; O2SAT 100; BMI 33.6
[2024-02-09 10:54] VITALS: BP 104/77; PULSE 68; O2SAT 99
[2024-02-09 10:58] VITALS: BP 104/77; PULSE 70; RESP 14; TEMP 36.9; O2SAT 99
--- NOTE | 2024-02-09 10:58 | ED_ITS ---
Discharge Plan Disposition Patient Disposition: Still a Patient Referrals Follow up/Referrals: Provider,Referral, [Primary Care Provider] - See instructions Activity Restrictions/Add. Instructions Additional Instructions/Restrictions: As discussed your symptoms are consistent with a concussion and postconcussive symptoms/syndrome. Nothing that you are experiencing is out of the ordinary from a concussion right now. Additionally you are 5 days out from the original injury and as discussed it is exceedingly unlikely that a CAT scan would demonstrate any type of pathology that would require emergent neurosurgical intervention therefore the risk of the CAT scan outweighs any benefit and with shared decision making we opted not to do a CT scan. Continue to take Tylenol as needed for your symptoms. Return to work and play as discussed in a stepwise fashion including 24 hours of complete rest followed by minimal activity followed by normal activity each time progressing only with no symptoms. This may take several more weeks I recommend that you follow-up with her primary care doctor if you need more than the next week off of work. Clinical Impressions Clinical Impression: Concussion, Post concussion syndrome Stand Alone Forms Stand Alone Forms: Work/School Release Print Language Print Language: Emirati Discharge ED Provider: Renetta Coronel General Adult HPI General Chief complaint: PAIN Stated complaint: headache x5days Time Seen by Provider: 02/09/24 10:34 Mode of Arrival: Ambulatory Source of Information: Patient Limitations: No Limitations Description of Symptoms (Recalled from ER Triage Doc. by RN): pt presents from [facility] for further evaluation. pt reports that he turned around and hit his head on an exhaust symptom. pt reports headache and confusion since then. History of Present Illness HPI narrative: 28-year-old who presents from the [facility] for concerns about a head injury. On he was standing and turned around and struck the frontal lateral aspect of his right side of his skull on the side of a cabinet or exhaust system from a kitchen. At the time states that he felt like his lin was rung and had immediate visual disturbance. Since that time has had some headaches that have been associated with blurred vision no changes in mental status but has at time had some confusion difficulty concentrating. Currently he states he has a mild headache no focal neurologic deficits or other complaints. He is not on any anticoagulants or blood thinners. Was seen in the [facility] and sent to the emergency department for further evaluation. Related Data Allergies Allergy/AdvReac Type Severity Reaction Status Date / Time No Known Allergies Allergy Verified 01/16/23 14:07 [facility] Disclaimer: The information contained in this section may have been updated after the patient was seen, as this information can be updated by other users. 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 ADD (attention deficit disorder) ADHD Surgical History Hx of tonsillectomy Family History Mother Diabetes Hypertension Asthma Sister Thyroid disorder Hypertension Diabetes Social History Smoking Status: Current every day smoker tobacco type: e-cigarettes years smoked: 5 smoking status stop date: 09/24/2021 alcohol intake: current alcohol intake frequency: holidays/special occasions only substance use type: denies use current occupational status: employed Travel in the last 8 weeks: None housing: house Have you lived/traveled outside [place] in past 30 days?: No Contact w/someone who lives/traveled outside US past 30 days?: No Exposure to someone with infectious disease in past 14 days?: No Do you have a fever (greater than 100.4 F or 38 C)?: No Have you tested positive for COVID-19: No Exposed to someone with COVID-19 in past 14 days?: No Do you have a sore throat?: No Do you have a cough?: No Do you have any weakness?: No Do you have any diarrhea?: No Are you experiencing any unusual bleeding?: No Do you have any muscle aches/pain?: No Do you have any abdominal pain?: No Are you experiencing loss of taste or smell?: No Other 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 Have you received the Flu Vaccine for this season: No Have you received the Pneumonia Vaccine: No ROS Obtained: Yes All systems reviewed & no additional complaints except as documented Physical Exam General General appearance: alert and in no apparent distress Head Head exam: atraumatic and other (No evidence of depressible fracture Cuellar sign or raccoon eyes) Eye Eye exam: Present normal appearance and EOMI Neck Neck exam: Present full ROM Respiratory Respiratory exam: Present normal lung sounds bilaterally Cardiovascular Cardiovascular exam: Present regular rate Neurological Exam Neurological exam: Present alert, oriented X3, CN II-XII intact, normal gait and other (Nonfocal); Absent motor sensory deficit Medical Decision Making Medical Records Screening: Per USPSTF and CDC recommendations, given the prevalence of disease in our region, it is our hospital?s policy to screen for HIV and viral Hepatitis for all patients aged 18 and over and those with ongoing risk factors. [place] Inquiry Pt receiving controlled substance: No Vital Signs: 02/09/24 10:25 02/09/24 10:45 Temperature 98.0 F 98.4 F Temperature Source Oral Oral Pulse Rate [Left Brachial] 69 69 Respiratory Rate 17 13 Blood Pressure [Left Arm] 129/70 104/77 L Blood Pressure Mean [Left Arm] 89 86 Blood Pressure Source [Left Arm] Automatic Cuff Blood Pressure Position [Left Arm] Sitting 02 Sat by Pulse Oximetry 98 100 Oxygen Delivery Method Room Air Room Air Medical Decision Narrative: Well-appearing 28-year-old male presenting today with symptoms following a head injury that occurred 5 days ago. First of all patient's injury occurred 5 days ago and it is exceedingly unlikely that he is in expanding hematoma 5 days out that would require neurosurgical intervention. Secondly his symptoms clinically are consistent with a concussive and postconcussive symptoms. He is [place] CT head negative and Nexus negative from a clinical standpoint and very unlikely to find anything on CT imaging that would require neurosurgical intervention. It is possible that there are not on clinically significant findings that we may be found on CT scan but given how good he looks clinically the risk radiation exposure outweighs any benefit. At a prolonged discussion with the patient and the young lady that was in the room with him discussing the risk and benefits of the CT scan and everybody in the room agreed with shared decision making not to pursue a CT scan as harm outweighs any benefit in this particular situation. I discussed with him return to play and work precautions in a stepwise fashion. He has been advised to take Tylenol as needed for his symptoms. He was discharged in a stable condition with return precautions emphasized specifically with changes in mental status or other neurologic complaints. Critical Care Critical Care Time Critical Care Time: No
== END 2024-02-09 11:03 | disposition still patient (30) ==
LOC: UTC 10:42 → ER 10:43
PROVIDERS: Emergency Provider Student in an Organized Health Care Education/Training Program
DX: F07.81 Postconcussional syndrome (principal); R51.9 Headache, unspecified; R41.0 Disorientation, unspecified; H53.9 Unspecified visual disturbance; W01.198A Fall on same level from slipping, tripping and stumbling with subsequent striking against other object, initial encounter; Y93.89 Activity, other specified; Y92.000 Kitchen of unspecified non-institutional (private) residence as the place of occurrence of the external cause
CPT/HCPCS: 99283

== ENCOUNTER 2025-01-27 10:47 | Emergency (ER) | payer OTHER, SELFPAY ==
--- NOTE | 2025-01-27 10:54 | HMH.EDGENADL ---
Discharge Plan Disposition Chief Complaint: PAIN Prescriptions Prescriptions: No Action diclofenac sodium 75 mg tablet,delayed release (DR/EC) 75 mg PO BID Qty: 28 0RF Referrals Follow up/Referrals: Provider,Referral, [Primary Care Provider, Medical] - See instructions Print Language Print Language: Kinyarwanda Discharge ED Provider: Agueda Wang General Adult HPI General Chief complaint: PAIN Stated complaint: pain in back and lungs, SOA Time Seen by Provider: 01/27/25 10:54 History of Present Illness HPI narrative: Patient is a 29-year-old with past medical history significant for vaping use presents emergency department with shortness of breath and chest pain. Patient feels like he cannot take a big deep breath that started yesterday no aggravating or alleviating symptoms. Reports that he had heart problems whenever he was a baby but denies any similar symptoms in the past. Patient feels like tightness in the base of his right lung that makes it hard for him to take a deep breath. No nausea vomiting cough congestion fever abdominal pain dysuria or increased urinary frequency. No blood in the urine. Related Data Previous Rx's ?Medication ?Instructions ?Recorded diclofenac sodium 75 mg 75 mg PO BID #28 tabs 10/18/24 tablet,delayed release Allergies Allergy/AdvReac Type Severity Reaction Status Date / Time No Known Allergies Allergy Verified 10/18/24 14:25 [facility] Disclaimer: The information contained in this section may have been updated after the patient was seen, as this information can be updated by other users. 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 ADD (attention deficit disorder) ADHD Surgical History Hx of tonsillectomy Family History Mother Diabetes Hypertension Asthma Sister Thyroid disorder Hypertension Diabetes Social History Smoking Status: Never smoker years smoked: 5 smoking status stop date: 09/24/2021 alcohol intake: current alcohol intake frequency: holidays/special occasions only substance use type: denies use current occupational status: employed Travel in the last 8 weeks?: None housing: house Have you lived/traveled outside US in past 30 days?: No Contact w/someone who lives/traveled outside US past 30 days?: No Exposure to someone with infectious disease in past 14 days?: No Do you have a fever (greater than 100.4 F or 38 C)?: No Have you tested positive for COVID-19?: No Exposed to someone with COVID-19 in past 14 days?: No Do you have a sore throat?: No Do you have a cough?: No Do you have any weakness?: No Do you have any diarrhea?: No Are you experiencing any unusual bleeding?: No Do you have any muscle aches/pain?: No Do you have any abdominal pain?: No Are you experiencing loss of taste or smell?: No Other 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 Have you received the Flu Vaccine for this season: No Have you received the Pneumonia Vaccine: Yes ROS Obtained: Yes All systems reviewed & no additional complaints except as documented Physical Exam General General appearance: alert and in no apparent distress Head Head exam: atraumatic Eye Eye exam: Present normal appearance; Absent PERRL ENT ENT exam: Present normal exam; Absent normal oropharynx Neck Neck exam: Present normal inspection Chest Chest inspection: Present symmetric chest wall rise; Absent tenderness Respiratory Respiratory exam: Present other (Decreased breath sounds bilaterally at the lung bases, splinting); Absent respiratory distress Cardiovascular Cardiovascular exam: Present regular rate and normal rhythm Abdominal Exam Abdominal exam: Present soft; Absent distention or tenderness Back Exam Back exam: Absent CVA tenderness (R), CVA tenderness (L) or rashes Neurological Exam Neurological exam: Present alert and oriented X3 Skin Skin exam: Present other (no lower extremity swelling) Medical Decision Making Medical Records Screening: Per USPSTF and CDC recommendations, given the prevalence of disease in our region, it is our hospital?s policy to screen for HIV and viral Hepatitis for all patients aged 18 and over and those with ongoing risk factors. [place] Inquiry Pt receiving controlled substance: No Vital Signs: 01/27/25 10:58 01/27/25 12:00 01/27/25 12:31 Temperature 98.1 F Temperature Source Oral Pulse Rate 65 71 Pulse Rate [Right] 88 Respiratory Rate 18 18 18 Blood Pressure 137/84 139/83 Blood Pressure [Right Arm] 151/91 H Blood Pressure Mean [Right Arm] 111 Blood Pressure Source [Right Arm] Automatic Cuff Blood Pressure Position [Right Arm] Sitting 02 Sat by Pulse Oximetry 99 100 99 Oxygen Delivery Method Room Air Lab Data Lab Results 01/27/25 11:33: WBC 7.6, RBC 4.60, Hgb 14.5, Hct 41.9 L, MCV 91.1, MCH 31.5 H, MCHC 34.6, RDW 12.1, Plt Count 385, MPV 9.7, Neut % (Auto) 59.5, Lymph % (Auto) 28.7, [place] % (Auto) 9.4 H, Eos % (Auto) 1.2, Baso % (Auto) 0.9, Neut # (Auto) 4.5, Lymph # (Auto) 2.2, [place] # (Auto) 0.7, Eos # (Auto) 0.1, Baso # (Auto) 0.1, Sodium 139, Potassium 4.0, Chloride 106, Carbon Dioxide 27, Anion Gap 10.0, BUN 14, Creatinine 0.90, Estimated Creat Clear 204, Estimated GFR 101, Est GFR ( Amer) 122, Glucose 102 H, Calcium 9.0, Total Bilirubin 0.6, AST 30, ALT 26, Alkaline Phosphatase 53, Troponin I < 0.01, Total Protein 7.7, Albumin 5.0, Globulin 2.7, Albumin/Globulin Ratio 1.9 H 01/27/25 12:11: Urine Color Yellow, Urine Appearance Clear, Urine pH 7.5, Ur Specific [place] 1.020, Urine Protein Negative, Urine Glucose (UA) Negative, Urine Ketones Negative, Urine Blood Negative, Urine Nitrate Negative, Urine Bilirubin Negative, Urine Urobilinogen 1.0, Ur Leukocyte Esterase Negative, Urine RBC None, Urine WBC 3-5, Ur Squamous Epith Cells Occasional, Urine Bacteria Trace 01/27/25 14:13: Troponin I < 0.01 01/27/25 11:33 01/27/25 11:33 Orders (Tests/Meds): ED MEDICATIONS Generic Name Dose Route Start Last Admin Trade Name Ernstq PRN Reason Stop Dose Admin Lidocaine 1 each 01/27/25 11:30 01/27/25 11:46 Lidocaine 5% Transdermal Patch TD 02/26/25 11:29 Not Given Q24H KEVIN Methocarbamol 1,500 mg 01/27/25 11:30 01/27/25 11:42 Methocarbamol 500mg Tablet PO 02/26/25 11:29 1,500 mg BID KEVIN Administration Discontinued Medications Generic Name Dose Route Start Last Admin Trade Name Milena PRN Reason Stop Dose Admin Acetaminophen 1,000 mg 01/27/25 11:18 01/27/25 11:42 Acetaminophen 500mg Tab PO 01/27/25 11:19 1,000 mg ONCE ONE Administration Lactated Ringer's 1,000 mls @ 999 mls/hr 01/27/25 11:18 01/27/25 12:45 Lactated Ringer's 1000 Ml Bag IV 01/27/25 12:18 Infused .Q1H1M ONE Infusion Ketorolac Tromethamine 15 mg 01/27/25 11:18 01/27/25 11:42 Ketorolac 15mg/Ml Vial IV 01/27/25 11:19 15 mg ONCE ONE Administration ORDERS Category Date Time Status CXR 2 view (NOT portable) [XR chest 2V] Stat Exams 01/27/25 10:59 Completed Complete Blood Count Auto Diff Stat Lab 01/27/25 11:33 Completed Comprehensive Metabolic Panel Stat Lab 01/27/25 11:33 Completed Troponin I Q3H Lab 01/27/25 14:13 Completed Troponin I Q3H Lab 01/27/25 17:30 Ordered Troponin I Stat Lab 01/27/25 11:33 Completed Urinalysis and Microscopic Stat Lab 01/27/25 12:11 Completed Medical Decision Narrative: In summary, this 29-year-old male presents to the emergency department today with shortness of breath. On initial evaluation patient is hemodynamically stable saturating appropriately on room air afebrile no acute distress. Differential diagnosis includes but is not limited to pneumothorax pleurisy pneumonia ACS vaping associated lung injury urolithiasis. Based on these concerns, I ordered CBC CMP troponin chest x-ray. PERC negative PE ruled out. ECG personally interpreted demonstrates T wave inversions in lead v1 III and aVF, Q waves in II, III, avf. Repeat ECG with stable T wave inversions in lead III and aVF Patient received Tylenol Robaxin Toradol lactated Ringer's for treatment. Labs personally reviewed demonstrate no hematuria normal creatinine normal initial troponin and repeat troponin normal. XR personally interpreted demonstrates no pneumothorax On reassessment patient has improvement of symptoms suspect patient is experiencing pleurisy versus vaping associated lung injury recommended ceasing vaping and outpatient follow-up with PCP for further evaluation. Heart score 2 Of note, social determinants of health include inability to see PCP in timely manner Critical Care Critical Care Time Critical Care Time: No
[2025-01-27 10:58] VITALS: BP 151/91; PULSE 88; RESP 18; TEMP 36.7; O2SAT 99; BMI 33.1
--- NOTE | 2025-01-27 10:59 | XR_ITS ---
FINAL REPORT CLINICAL HISTORY: Shortness of breath COMPARISON: 10/30/2021 FINDINGS: PA and lateral views of the chest were obtained. The cardiac and mediastinal silhouettes are within normal limits. The lungs are clear. There is no pleural effusion or pneumothorax. No acute osseous abnormality is identified. IMPRESSION: No radiographic evidence of acute cardiac or pulmonary disease. Reviewed, Interpreted and Dictated by Teresa Bean MD Transcribed by Mary Preston Authenticated and [facility]
--- NOTE | 2025-01-27 11:30 | ECG_ITS ---
APPROVED REPORT Exam: Resting ECG HR:73 bpm ECG Measurements Heart Rate 73 AXES SC 151 P 12 QRSd 121 QRS 56 QT 376 T -14 QTc 401 Conclusion SINUS RHYTHM INFERIOR MYOCARDIAL INFARCTION , OF INDETERMINATE AGE [40+ ms Q WAVE AND/OR ST/T ABNORMALITY IN II/aVF] ABNORMAL ECG UNCONFIRMED REPORT Electronically signed by : ANDRE THORNTON, 01/29/2025 01:21:28
[2025-01-27] MEDS: LACTATED RINGERS 1000ML 1,000 ML 999 ML IV (11:41)
[2025-01-27 11:42] LABS: Hematocrit 41.9 % (42.0-52.0); Hemoglobin 14.5 g/dL (14.1-18.0); Immature Granulocytes % 0.3 %; Mean Corpuscular HGB Conc 34.6 g/dL (31.8-35.4); Mean Corpuscular Hemoglobin 31.5 pg (27.0-31.2); Mean Corpuscular Volume 91.1 fl (80-94); Nucleated Red Blood Cells % 0 %; Platelet Count 385 K/mm3 (142-424); Red Blood Count 4.60 M/mm3 (4.60-6.20); Red Cell Distribution Width-SD 40.2 fL; White Blood Count 7.6 K/mm3 (4.8-10.8)
[2025-01-27] MEDS: KETOROLAC 15MG/ML VIAL 15 MG IV (11:42)
[2025-01-27] MEDS: ACETAMINOPHEN 500MG TAB 1000 MG PO (11:42)
[2025-01-27] MEDS: METHOCARBAMOL 500MG TABLET 1500 MG PO (11:42)
[2025-01-27 11:52] LABS: Albumin Level 5.0 g/dl (3.5-5.0); Chloride 106 mmol/L (98-107); Potassium 4.0 mmoL/L (3.5-5.1); Sodium 139 mmol/L (136-145)
[2025-01-27 11:55] LABS: Alanine Aminotransferase 26 U/L (12-78); Albumin/Globulin Ratio 1.9 (1.1-1.8); Alkaline Phosphatase 53 U/L (38-126); Anion Gap 10.0 mEq/L (5-15); Aspartate Amino Transferase 30 U/L (17-59); Bilirubin,Total 0.6 mg/dl (0.2-1.3); Blood Urea Nitrogen 14 mg/dl (9-20); Calcium 9.0 mg/dl (8.4-10.2); Carbon Dioxide 27 mmol/L (22.0-30.0); Creatinine Clearance Estimated 204 mL/min (50-200); Creatinine,Serum 0.90 mg/dl (0.66-1.25); Estimated Glomerular Filt Rate 101 ml/min (>60); GFR (African American) 122 ML/MIN (>60); Globulin 2.7 g/dL (1.3-3.2); Glucose 102 mg/dl (74-100); Total Protein,Serum 7.7 g/dl (6.3-8.2)
[2025-01-27 12:00] VITALS: BP 137/84; PULSE 65; RESP 18; O2SAT 100
[2025-01-27 12:11] LABS: Troponin I < 0.01 ng/ml (0.00-0.034)
--- NOTE | 2025-01-27 12:13 | PC.NURSE ---
UA sent to lab
--- NOTE | 2025-01-27 12:13 | PC.NURSE ---
UA sent to lab; blankets given per pt request. call lin within reach
[2025-01-27 12:18] LABS: Microscopic, Urine URINE MICROSCOPIC (MICROSCOPIC)
[2025-01-27 12:19] LABS: Bilirubin,Urine Negative (Negative); Color,Urine YELLOW (Yellow); Glucose,Urine (UA) Negative (Negative); Ketones,Urine Negative (Negative); Leukocyte Esterase,Urine Negative (Negative); PH,Urine 7.5 (5.0-8.5); Protein,Urine Negative (Negative); Specific Gravity, Urine 1.020 (1.005-1.030); Urobilinogen,Urine 1.0 EU/dl (0.2)
[2025-01-27 12:31] VITALS: BP 139/83; PULSE 71; RESP 18; O2SAT 99
[2025-01-27 12:41] LABS: Bacteria,Urine Trace /lpf; Squamous Epithelial Cell,Urine Occasional #/hpf (0-5)
[2025-01-27 13:00] VITALS: BP 129/74; PULSE 58; RESP 17; O2SAT 98
--- NOTE | 2025-01-27 13:08 | ECG_ITS ---
APPROVED REPORT Exam: Resting ECG HR:56 bpm ECG Measurements Heart Rate 56 AXES SD 167 P 3 QRSd 122 QRS 56 QT 410 T -7 QTc 401 Conclusion SINUS BRADYCARDIA ANTEROLATERAL MYOCARDIAL INFARCTION , OF INDETERMINATE AGE [40+ ms Q WAVE IN I/aVL/V3-V6] ABNORMAL ECG UNCONFIRMED REPORT Electronically signed by : ANDRE THORNTON, 01/29/2025 01:20:03
[2025-01-27 13:31] VITALS: BP 101/62; PULSE 58; RESP 19; O2SAT 99
--- NOTE | 2025-01-27 13:55 | PC.NURSE ---
repeat EKG completed and given to ER MD; PT requesting something to eat, called [employer] for a regular lunch tray; okay'd by ER
[2025-01-27 14:49] LABS: Troponin I < 0.01 ng/ml (0.00-0.034)
[2025-01-27 14:57] VITALS: BP 140/87; PULSE 63; RESP 20; TEMP 36.6; O2SAT 98
== END 2025-01-27 15:02 | disposition home or self-care (01) ==
PROVIDERS: Emergency Provider Student in an Organized Health Care Education/Training Program
DX: R07.89 Other chest pain (principal); R09.1 Pleurisy; R06.02 Shortness of breath
CPT/HCPCS: 71046; 80053; 81001; 84484; 85025; 93005; 96361; 96374; 99285; J1885; J7120